=== PATIENT | female | born 1990 | race Caucasian/White ===

== ENCOUNTER 2021-09-20 04:32 | Emergency (ER) | payer OTHER ==
[~2021-09-20 04:32] MED LIST: COLACE 100MG C100 MG PO
[2021-09-20 05:58] LABS: HEMOGLOBIN 12.6 gm/dl (12.3-15.3); RED BLOOD COUNT 4.12 M/UL (4.00-5.10); WHITE BLOOD COUNT 13.2 K/UL (4.5-11.0)
[2021-09-20 06:07] LABS: BUN/CREATININE RATIO 13 (0-10)
== END 2021-09-20 12:25 | disposition home or self-care (01) ==
LOC: ER1 04:32
PROVIDERS: Physician Assistant
DX: R44.0 Auditory hallucinations (principal); Z20.822 Contact with and (suspected) exposure to COVID-19
CPT/HCPCS: 80053; 80307; 81001; 84703; 85025; 99284; G0480; U0002

== ENCOUNTER 2021-11-02 16:25 | Emergency (ER) | payer OTHER ==
[~2021-11-02 16:25] MED LIST changes: +VISTARIL 50 MG50 MG PO
== END 2021-11-03 01:15 | disposition home or self-care (01) ==
LOC: ER1 16:25
DX: Z00.00 Encounter for general adult medical examination without abnormal findings (principal); Z20.822 Contact with and (suspected) exposure to COVID-19; F17.290 Nicotine dependence, other tobacco product, uncomplicated; Y04.0XXA Assault by unarmed brawl or fight, initial encounter; Y92.009 Unspecified place in unspecified non-institutional (private) residence as the place of occurrence of the external cause
CPT/HCPCS: 70450; 72125; 72128; 73090; 99284; U0002